=== PATIENT | male | born 1975 | race Two or more races ===

== ENCOUNTER 2024-02-07 08:07 | Emergency (ER) | payer OTHER, SELFPAY ==
[2024-02-07 08:15] VITALS: BP 163/84
[2024-02-07 08:46] VITALS: BP 148/78
--- NOTE | 2024-02-07 08:54 | ED.GENMED ---
History of Present Illness
General
Chief Complaint: Abdominal Symptoms
Source: patient and spouse
Time Seen by Provider: 02/07/24 08:41
History of Present Illness
History of Present Illness:
48-year-old male with past medical history of hypertension and hepatitis B presenting to the emergency department for evaluation of cold and flulike symptoms that been ongoing for at least 3 to 4 days, questionably tested positive for COVID earlier
this morning, symptoms including cough, sore throat, nasal congestion, fevers, diarrhea, nausea but without any vomiting, generalized fatigue. Patient recently returned from [place] and he was [place] where he was visiting family. No known sick
contacts or recent antibiotics. Patient did take some Motrin around 6 AM this morning with some relief of the body aches and fever.
Past History
Past History
ED Past Medical History: HTN and Other (Hepatitis B)
ED Past Surgical History: None
Social History
Tobacco: Non-smoker
Alcohol: None
Drug: None
Personal:
Living: with family
Review of Systems
Review of Systems
All Other Systems: ROS reviewed and negative except as documented in HPI and ROS
Phy Exam
Physical Exam
Physical Exam:
GENERAL: Alert , in no apparent distress, intermittent nonproductive cough noted
HEAD: NCAT
EYE: conjunctiva clear
NECK: Supple, no significant adenopathy.
ENT: o/p clr, mmm.
CARDIAC: Regular rate and rhythm
LUNGS: Clear breath sounds bilaterally, no acute respiratory distress, no wheezes/rales/rhonchi
ABDOMEN: Soft, non-tender, non-distended
NEUROLOGICAL: Alert and oriented
SKIN: Warm and clammy, skin intact.
MUSCULOSKELETAL: well perfused.
PSYCH: Normal and appropriate interaction.
Scores
Heart Failure Risk
Heart Failure Risk Score: Not Applicable
Heart Score for Chest Pain Patients
STEMI patient?: Not applicable
Withdrawal Assessment of Alcohol
Withdrawal Assessment Completed?: Not applicable
Sepsis
Sepsis Screening
Sepsis Assessment: Sepsis Ruled Out
Sepsis Screen
Sepsis Screen: Sepsis Ruled Out
Date: 02/07/24
Time: 13:20
Course
Orders/Labs/Results
Orders:
Orders
02/07/24 08:53
0.9% Sodium Chloride 1000 ml [Nss] 1,000 ml IV BOLUS
Acetaminophen [Tylenol] 650 mg PO NOW STA
02/07/24 09:03
COVID-19 Antigen Urgent
Source: Nasal Swab
Complete Blood Count/With Diff Urgent
Comprehensive Metabolic Panel Urgent
Abnormal Lab Results
02/07/24
09:03
WBC 12.7 H 10^3/uL
(4.8-10.8)
MCH 31.3 H pg
(27.0-31.0)
Abs Immat Gran (auto) 0.1 H 10^3/uL
(0-0.05)
Absolute Neuts (auto) 10.3 H 10^3/uL
(1.4-6.5)
Absolute Monos (auto) 0.9 H 10^3/uL
(0.1-0.6)
Neutrophils % 81.0 H %
(42.2-75.2)
Lymphocytes % 11.5 L %
(20.5-51.1)
Chloride 108 H mmol/L
(98-107)
Carbon Dioxide 19 L mmol/L
(22-30)
Glucose 152 H mg/dl
(70-99)
AST 61 H U/L
(17-59)
ALT 102 H U/L
(0-50)
SARS-CoV-2 Antigen Positive A
(Negative)
02/07/24 09:03
02/07/24 09:03
Vital Signs
Initial and Last Documented VS:
Initial Vital Signs
Temp Pulse Resp BP Pulse Ox
100.5 F H 111 22 163/84 95
02/07/24 08:15 02/07/24 08:15 02/07/24 08:15 02/07/24 08:15 02/07/24 08:15
Last Documented Vital Signs
Temp Pulse Resp BP Pulse Ox
100.5 F H 97 18 142/83 96
02/07/24 08:15 02/07/24 10:00 02/07/24 10:00 02/07/24 10:00 02/07/24 10:00
MDM/Problems Addressed
Differential Diagnosis Includes:
Covid, flu, pneumonia, other viral illness, travelers diarrhea
MDM/Problems Addressed:
48-year-old male presenting to the emergency department for flulike symptoms that have been ongoing for about 3 days, reports she did a COVID test on him and believes the test was positive but states she is unsure and is requesting we retest
the patient here. Patient does have a fever here of 100.5. He is in no acute respiratory distress. And while he is ill-appearing he is nontoxic in. Will check labs, fluids ordered Tylenol ordered for fever. Anticipate discharge home with
continued supportive measures. Disposition pending
*Pulse Oximetry
Patient hypoxic: no
*Critical Care Note
Total Time (30-74mins, 75-104mins- exclusive of procedures): Not Applicable
Patient Management
Escalation/DeEscalation of care consider admission/obs:
Patient is covid positive. Labs do show a leukocytosis which is likely infection related, mild transaminitis which could be chronic based off patient's known history of hepatitis B. Patient completed 1 L IV fluids and does state feels a little bit
better. Advised on supportive care. Aware of return precautions. Stable for discharge home.
ED Attending Note
-
Portions of this chart may have been created with voice recognition software.� Occasional wrong word or��sound alike� substitutions may have occurred due to the inherent limitations of voice recognition software.
Discharge Plan
Departure
Patient Disposition: Home (Routine Discharge)
Date of Disposition: 02/07/24
Time of Disposition: 09:46
Patient with high blood pressure during this ER visit?: Yes
Discharge Problem:
COVID-19
Instructions: COVID-19 ED
Prescriptions:
New
ondansetron 4 mg tablet,disintegrating
4 mg PO TIDPRN PRN (Reason: nausea/vomiting) Qty: 8 0RF
Interventions
Interventions:
*Risk Screen - Suicide Last Done: 02/07/24 08:15
*General Assessment Last Done: 02/07/24 08:15
*Neglect/Abuse Screening Last Done: 02/07/24 08:15
ED- Fall Risk Assessment Last Done: 02/07/24 10:13
*ED COVID-19 Vaccine History Last Done: 02/07/24 09:06
*Nursing Disposition Last Done: 02/07/24 10:13
ZC-Qyzpzx-Olntvyvtnz Assessment Last Done: 02/07/24 08:47
Discharge Date and Time
Discharge Date/Time: 02/07/24 10:16
Print Language: BURMESE
[2024-02-07] MEDS: TYLENOL 650 MG PO (08:56)
[2024-02-07] MEDS: NSS 1000 IV (09:02)
[2024-02-07 09:06] VITALS: BMI 33.2
[2024-02-07 09:22] LABS: % Basophils 0.2 % (0-2); % Immature Granulocytes 0.4 % (0-0.5); % Lymphocytes 11.5 % (20.5-51.1); % Monocytes 6.9 % (1.7-9.3); Absolute Immature Granulocytes 0.1 10^3/uL (0-0.05); Absolute Lymphocytes 1.5 10^3/uL (1.2-3.4); Absolute Monocytes 0.9 10^3/uL (0.1-0.6); Absolute Neutrophils 10.3 10^3/uL (1.4-6.5); Hematocrit 47.8 % (39.0-52.0); Hemoglobin 16.2 g/dL (13.0-18.0); Mean Corp Hgb Conc. 33.9 g/dL (33.0-37.0); Mean Corpuscular Hgb 31.3 pg (27.0-31.0); Mean Corpuscular Volume 92.3 fL (80.0-94.0); Mean Platelet Volume 9.9 fL (7.4-10.4); Nucleated Red Blood Cells % 0 % (-); Platelet Count 158 10^3/uL (130-400); Red Blood Cell Count 5.18 10^6/uL (4.70-6.10); Red Cell Dist. Width 12.3 % (11.5-14.5); White Blood Cell Count 12.7 10^3/uL (4.8-10.8)
[2024-02-07 09:23] LABS: COVID-19 Antigen Positive (Negative)
[2024-02-07 09:28] LABS: ALT (SGPT) 102 U/L (0-50); AST (SGOT) 61 U/L (17-59); Albumin 4.1 g/dl (3.5-5.0); Alkaline Phosphatase 106 U/L (38-126); Blood Urea Nitrogen 13 mg/dl (9-20); Carbon Dioxide 19 mmol/L (22-30); Chloride 108 mmol/L (98-107); Estimated Creatinine Clearance 119 ml/min; Glucose 152 mg/dl (70-99); Potassium 4.1 mmol/L (3.5-5.1); Sodium 140 mmol/L (135-145); Total Bilirubin 0.4 mg/dl (0.2-1.3); Total Protein 7.5 g/dl (6.3-8.2); eGFR > 60.00
[2024-02-07 10:00] VITALS: BP 142/83
== END 2024-02-07 10:16 | disposition home or self-care (01) ==
LOC: EMR 08:07
PROVIDERS: Physician Assistant Medical; EMERGENCY PHYSICIAN Student in an Organized Health Care Education/Training Program; FAMILY PHYSICIAN Family Medicine
DX: U07.1 COVID-19 (principal); I10 Essential (primary) hypertension
CPT/HCPCS: 99283; 96360; 80053; 85025; 87811